=== PATIENT | female | born 1945 | race Caucasian/White ===

== ENCOUNTER 2019-06-06 21:29 | Emergency (ER) | payer MEDICARE, OTHER ==
[~2019-06-06] VITALS: Ht 149.9 cm; Wt 86.2 kg
[~2019-06-06 21:29] MED LIST: ASPI81EC
[2019-06-06] MEDS ORDERED: Naprosyn500 MG PO (22:56)
== END 2019-06-06 23:10 | disposition home or self-care (01) ==
LOC: ER 21:29
DX: M25.561 Pain in right knee (principal)
CPT/HCPCS: 99283